=== PATIENT | male | born 1980 | race Two or more races ===

== ENCOUNTER 2017-04-06 05:29 | Day surgery (SDC) | payer OTHER ==
[2017-04-06] MEDS ORDERED: LR 1,000 ML IV ONE (05:59)
--- NOTE | 2017-04-06 06:56 | PDANEPAE ---
ANE History of Present Illness rectal EUA with fissurectomy ANE Past Medical History - Cardiovascular History Hx Hypertension: No Hx Arrhythmias: No Hx Chest Pain: No Hx Coronary Artery / Peripheral Vascular Disease: No Hx CHF / Valvular Disease: No Hx Palpitations: No - Pulmonary History Hx COPD: No Hx Asthma/Reactive Airway Disease: No Hx Recent Upper Respiratory Infection: No Hx Oxygen in Use at Home: No Hx Sleep Apnea: No Sleep Apnea Screening Result - Last Documented: Negative - Neurologic History Hx Cerebrovascular Accident: No Hx Seizures: No Hx Dementia: No - Endocrine History Hx Diabetes: No - Renal History Hx Renal Disorders: No - Liver History Hx Hepatic Disorders: No - Neurological & Psychiatric Hx Hx Neurological and Psychiatric Disorders: No - Cancer History Hx Cancer: No - Congenital Disorder History Hx Congenital Disorders: No - GI History Hx Gastrointestinal Disorders: Yes Gastrointestinal History Comment: RECTAL PAIN. CONSTIPATION - Other Health History Other Health History: NONE - Chronic Pain History Chronic Pain: Yes (RECTAL PAIN) - Surgical History Prior Surgeries: LEFT KNEE ACL. RIGHT KNEE MENISCUS DEBRIDEMENT ANE Review of Systems Review of systems is: negative Review of Systems: - Exercise capacity Exercise capacity: >=4 METS METS (RN): 4 METS ANE Patient History - Allergies Allergies/Adverse Reactions: No Allergies [NKDA] Allergy (Verified 04/05/17 16:58) - Home Medications Home medications: home medication list seen and reviewed Home Medications: Docusate Calcium 04/05/17 [Last Taken 04/05/17] Lidocaine 04/05/17 [Last Taken 04/05/17] - NPO status NPO Status: no food or drink >8 hours NPO Since - Liquids (Date): 04/05/17 NPO Since - Liquids (Time): 20:00 NPO Since - Solids (Date): 04/05/17 NPO Since - Solids (Time): 20:00 - Anes Hx Anes Hx: no prior problems - Smoking Hx Smoking Status: Never smoked - Family Anes Hx Family Anes Hx: none Family Hx Anesthesia Complications: NONE ANE Labs/Vital Signs - Vital Signs Blood Pressure: 98/57 Heart Rate: 66 Respiratory Rate: 16 O2 Sat (%): 98 Height: 165.1 cm Weight: 75.296 kg ANE Physical Exam - Airway Neck exam: FROM Mallampati Score: Class 1 Mouth exam: normal dental/mouth exam - Pulmonary Pulmonary: no respiratory distress - Cardiovascular Cardiovascular: regular rate and rhythym - ASA Status ASA Status: I ANE Anesthesia Plan Anesthesia Plan: GA w LMA
[2017-04-06] MEDS ORDERED: METHYLENE BLUE 0.5% 50 MG/10 ML AMP ONE (06:58)
[2017-04-06] MEDS ORDERED: BUPIVACAINE 0.5% 30 ML SDV ONE (06:58)
[2017-04-06] MEDS ORDERED: cefOXitin SODIUM 2 GM in D5W 100 ML IV ONE (07:00)
[2017-04-06] MEDS ORDERED: MIDAZOLAM 2 MG/2 ML VIAL IVP ONE (07:01)
--- NOTE | 2017-04-06 07:11 | PDHPUP ---
History & Physical Update H&P update statement: This history and physical update is based on an assessment of the patient which was completed after admission or registration (within 24 hours), but prior to the surgery/procedure. updated
[2017-04-06] MEDS ORDERED: DEXAMETHASONE 4 MG/ML VIAL ONE (07:21)
[2017-04-06] MEDS ORDERED: PROPOFOL 200 MG/20 ML VIAL ONE (07:21)
[2017-04-06] MEDS ORDERED: ONDANSETRON 4 MG/2 ML VIAL ONE (07:21)
[2017-04-06] MEDS ORDERED: LIDOCAINE 2% 100 MG/5 ML SYR ONE (07:21)
[2017-04-06] MEDS ORDERED: fentaNYL 100 MCG/2 ML INJ ONE (07:21)
[2017-04-06] MEDS ORDERED: ACETAMINOPHEN 500 MG TAB PO PRN (07:55)
[2017-04-06] MEDS ORDERED: HYDROmorphONE/DILAUDID 1 MG/ML INJ IVP PRN (07:55)
[2017-04-06] MEDS ORDERED: DEXAMETHASONE 4 MG/ML VIAL IVP PRN (07:55)
[2017-04-06] MEDS ORDERED: MEPERIDINE 25 MG/ML SYR IVP PRN (07:55)
[2017-04-06] MEDS ORDERED: PROMETHAZINE HCL 25 MG/ML INJ IVP PRN (07:55)
[2017-04-06] MEDS ORDERED: HYDROCODONE/APAP 5/325 TAB PO PRN (07:55)
[2017-04-06] MEDS ORDERED: fentaNYL 100 MCG/2 ML INJ IVP PRN (07:55)
[2017-04-06] MEDS ORDERED: NALOXONE HCL 0.4 MG/ML INJ IVP PRN (07:55)
[2017-04-06] MEDS ORDERED: OXYCODONE/APAP 5/325 TAB PO PRN (07:55)
[2017-04-06] MEDS ORDERED: ONDANSETRON 4 MG/2 ML VIAL IVP PRN (07:55)
--- NOTE | 2017-04-06 07:57 | POSTANESTH ---
Post Anesthetic Evaluation Cardiovascular Status: Normal, Stable, Similar to Pre-Op Cond Respiratory Status: Normal, Stable, Similar to Pre-op Cond. Level of Consciousness/Mental Status: Can Participate in Eval, Moderately Sleepy Pain Control: Adequate, Prn Tx Ordered Nausea/Vomiting Control: Adequate, Prn Tx Ordered Complications Possibly Related to Anesthesia: None Noted
[2017-04-06] MEDS ORDERED: KETOROLAC 30 MG/1 ML SDV ONE (08:02)
--- NOTE | 2017-04-06 08:47 | GOP ---
[f rep st] OPERATIVE REPORT DATE OF OPERATION: 04/06/2017 SURGEON: Yuniel Regan MD FIN[employer]CIAL SYSTEMS MANAGER: Bernardo Andrews PA-C. ANESTHESIOLOGIST: Broderick Coburn MD. PREOPERATIVE DIAGNOSIS: Anal pain and anal fissure. POSTOPERATIVE DIAGNOSIS: Anal pain and anal fissure, plus internal hemorrhoids. PROCEDURE PERFORMED: Exam under anesthesia, anal fissurectomy, lateral internal sphincterotomy and i nternal hemorrhoid ligations. FINDINGS: Patient was found to have a 1 x 4 mm posterior anal fissure with a sentinel tag, also had a grade 2 to 3 internal hemorrhoids circumferentially. DESCRIPTION OF PROCEDURE: Patient was taken to the operating room where he received satisfactory gen eral endotracheal anesthesia by Dr. Coburn. He was placed in the lithotomy position, prepped and d raped in the usual sterile fashion. The anus was infiltrated with 0.5% Marcaine and gently dilated t o 3 fingerbreadths. A posterior fissure was identified. It was excised along with a sentinel tag an d closed with a running 4-0 chromic suture. At the 3 o'clock position, a short incision was made at the intersphincteric line. The internal sphincter was grasped with an Allis clamp and partially divi ded for two-thirds of its fibers with electrocautery. Hemostasis was assured and that wound was also closed with 4-0 chromic sutures. Internal hemorrhoids were then ligated at the 7 o'clock, 5 o'clock , 11 o'clock positions. The wound was further infiltrated with 0.5% Marcaine and dressed. He tolera liliane the procedure well and taken to the recovery room in good condition. No complications. Copy requested to: Ying Kim Dr. /[id number]/MODL
[2017-04-06] MEDS ORDERED: OXYCODONE/APAP 5/325 TAB ONE (09:02)
[2017-04-06 09:22] VITALS: BP 110/61; PULSE 72; RESP 16; TEMP 208.8; O2SAT 100
--- NOTE | 2017-04-06 10:46 | POSTOPPROG ---
Post Op Note Date of Operation: 04/06/17 Surgeon: Yuniel Regan [employer] Member: Bernardo Andrews Anesthesiologist: Dr Coburn Anesthesia: GET(General Endotracheal) Pre-op Diagnosis: fissure, hemorrhoids Post-op Diagnosis: same Indication: pain Procedure: fissurectomy, banding times 2, spinchterotomy Findings: fissure, hemorrhoids Inf/Abcess present in the surg proc area at time of surgery?: No Depth: Deep Incisional (Fascial) EBL: Minimal Specimen(s): fissure
== END 2017-04-06 09:18 | disposition home or self-care (01) ==
LOC: FSGY 05:29 → EDSEX 07:15 → FSGY 09:18
PROVIDERS: ATTEND Surgery
PROC: 0D8R0ZZ Division of Anal Sphincter, Open Approach (ICD-10-PCS; principal; 2017-04-06 07:15)
PROC: 06LY3CC Occlusion of Hemorrhoidal Plexus with Extraluminal Device, Percutaneous Approach (ICD-10-PCS; principal; 2017-04-06 07:15)
DX: K60.1 Chronic anal fissure (principal); K64.1 Second degree hemorrhoids; K64.2 Third degree hemorrhoids
CPT/HCPCS: J0171; J0694; J1100; J1885; J2001; J2250; J2405; J2704; J3010; Q9968